=== PATIENT | female | born 2000 | race Caucasian/White ===

== ENCOUNTER 2024-03-22 20:59 | Emergency (ER) | payer OTHER ==
[~2024-03-22] VITALS: Ht 167.6 cm; Wt 82.0 kg
[2024-03-22 21:04] VITALS: O2SAT 100
[2024-03-22] MEDS: ONDANSETRON 4MG ODT PO NR (21:25)
[2024-03-22 21:58] LABS: HEMATOCRIT. 45.9 % (36.0-48.0); MEAN CORPUSCULAR HEMOGLOBIN 29.6 pg (28.0-32.0); MEAN CORPUSCULAR HGB CONC 32.8 g/dL (31.0-37.0); MEAN CORPUSCULAR VOLUME 90.4 fL (81.0-99.0); MEAN PLATELET VOLUME 7.7 fl (7.4-10.4); PLATELET 354 x1000/uL (130-400); RED BLOOD CELL COUNT 5.08 mill/uL (4.2-5.4); RED CELL DISTRIBUTION WIDTH 13.3 % (11.6-14.6)
[2024-03-22 22:03] LABS: DIFFERENTIAL COMMENT 1
[2024-03-22 22:05] LABS: CHLORIDE 105 mEq/L (98-107); SODIUM 139 mEq/L (136-145)
[2024-03-22 22:06] LABS: CALCIUM 10.3 mg/dL (8.7-10.4); CARBON DIOXIDE 25 mEq/L (21-32)
[2024-03-22 22:11] LABS: CREATININE 0.9 mg/dL (0.6-1.0); GLUCOSE 175 mg/dL (70-105); UREA NITROGEN BLOOD 11 mg/dL (9-23)
[2024-03-22 22:13] LABS: ALANINE AMINOTRANSFERASE 28 IU/L (10-49); ALBUMIN 5.6 g/dL (3.2-4.8); ASPARTATE AMINOTRANSFERASE 22 IU/L (<34); BILIRUBIN DIRECT 0.2 mg/dL (<=3.0); BILIRUBIN TOTAL 0.8 mg/dL (0.1-1.0)
[2024-03-22 22:14] LABS: PROTEIN TOTAL 8.2 g/dL (6.0-8.3)
[2024-03-22 22:16] LABS: CLARITY URINE TURBID (CLEAR); COLOR URINE YELLOW (YELLOW); GLUCOSE URINE NEGATIVE (NEGATIVE); KETONES URINE 1+ (NEGATIVE); LEUKOCYTE ESTERASE URINE NEGATIVE (NEGATIVE); NITRITE URINE NEGATIVE (NEGATIVE); OCCULT BLOOD URINE NEGATIVE (NEGATIVE); PH URINE 5.5 (4.5-8.0); PROTEIN URINE TRACE (NEGATIVE); SPECIFIC GRAVITY URINE 1.033 (1.005-1.030); UROBILINOGEN URINE 0.2 E.U./dL (0.2-1.0)
[2024-03-22 22:17] LABS: PLATELET ESTIMATE NORMAL
[2024-03-22 22:33] LABS: BACTERIA URINE 4+; RBC URINE 0-2 /hpf (0-2); SQUAMOUS EPITHELIAL CELL URINE 1+ /lpf (RARE/1+)
[2024-03-22 22:34] LABS: AMORPHOUS SEDIMENT URINE 2+ /lpf; WBC URINE 0-2 /hpf (0-2)
[2024-03-22] MEDS: LACTATED RINGERS 1,000 ML IV ONE (23:41)
[2024-03-22] MEDS: ONDANSETRON HCL 4MG/2ML INJ IV ONE (23:41)
[2024-03-22] MEDS: MORPHINE SULFATE 4 MG/ML INJ (FOR IV/IM USE) IV ONE (23:55)
[2024-03-23] MEDS ORDERED: DOXY150T5 MT (02:16)
[2024-03-23] MEDS ORDERED: METR375C2 MT (02:17)
[2024-03-23] MEDS: CEFTRIAXONE SODIUM 250MG VIAL IM ONE (02:52)
[2024-03-23 02:57] VITALS: BP 120/65; PULSE 87; RESP 20; TEMP 98.4
[2024-03-23] MEDS ORDERED: IOHEXOL-300 100 ML BOTTLE ONE (06:55)
== END 2024-03-23 03:00 | disposition home or self-care (01) ==
LOC: ER 20:59
DX: N73.8 Other specified female pelvic inflammatory diseases (principal); R10.31 Right lower quadrant pain; J45.909 Unspecified asthma, uncomplicated; Z88.0 Allergy status to penicillin
CPT/HCPCS: 99285; 96374; 96361; 96375; 80053; 81003; 81025; 83690; 85025; 36415; 74177; 96372; 80076; Q0162 ×2; J2405; J2270; J7120; Q9967; J0696